=== PATIENT | female | born 1965 | race Caucasian/White ===

== ENCOUNTER 2017-07-13 17:19 | Observation (INO) | payer OTHER ==
[2017-07-13] MEDS ORDERED: traMADol HCl 50 MG TAB ONE (19:48)
--- NOTE | 2017-07-13 20:05 | RAD ---
CERVICAL SPINE: 07/13/17 Five views. HISTORY: Fall with injury to the neck. There are degenerative changes seen at C5-6 and C6-7 with disc narrowing and hypertrophic spurring. C7-T1 is not adequately evaluated on this exam. C7-T1 is not adequately seen on the Swimmer's view. The vertebral bodies maintain normal height and alignment through C7. A repeat Swimmer's view could be obtained with lower target to assess the C7-T1 level. IMPRESSION: Degenerative changes at C5-6 and C6-7. The vertebral bodies maintain height and alignment through C7. C7-T1 level not adequately evaluated. Recommend repeat Swimmer's view. POS: [facility]
--- NOTE | 2017-07-13 20:17 | CT ---
BRAIN CT WITHOUT IV CONTRAST: 07/13/17 HISTORY: 51-year-old female with history of fall. No focal mass or midline shift. No intra or extra-axial hemorrhage. Sinuses and mastoids are clear. IMPRESSION: No significant acute intracranial process. No mass or bleed. POS: [facility]
--- NOTE | 2017-07-13 21:09 | RAD ---
LEFT WRIST: 07/13/17 Three views. HISTORY: Fall with injury to wrist. Carpals appear normally aligned. No evidence of fracture identified. IMPRESSION: No evidence of fracture. POS: [facility]
--- NOTE | 2017-07-13 21:45 | CT ---
CT CERVICAL SPINE: 07/13/17 Multiple axial tomograms obtained through the cervical spine with multiplanar reconstructions. HISTORY: Fall with injury to neck. Cervical vertebrae maintain normal height and alignment. There are moderate degenerative changes in t he mid cervical with loss of disc space at C5-6, C6-7. There are degenerative osteophytes and posteri or spondylitic changes at these levels. No evidence of cervical spine fracture. Foraminal stenosis se en on the right at C3-4 due to facet hypertrophy. Foraminal stenosis seen bilaterally at C5-6 due to facet and uncinate hypertrophy and also at C6-7 due to facet and uncinate hypertrophy. IMPRESSION: There are moderate degenerative changes in the cervical spine. as described. There is no evidence of acute fracture. POS: [facility]
--- NOTE | 2017-07-13 22:55 | RAD ---
LEFT HIP TWO VIEWS: 07/13/17 HISTORY: 51-year-old female with history of left hip pain following a fall at home. IMPRESSION: Mild degenerative changes. No acute fracture or dislocation. POS: [facility]
[2017-07-13] MEDS ORDERED: Morphine 4 MG/ML VIAL ONE (22:57)
--- NOTE | 2017-07-13 23:01 | RAD ---
LEFT FOREARM: 07/13/17 A total of four views. HISTORY: Fall with injury to left forearm. FINDINGS/IMPRESSION: No evidence of fracture identified. POS: [facility]
--- NOTE | 2017-07-13 23:06 | RAD ---
LEFT ANKLE THREE VIEWS: 07/13/17 HISTORY: Left ankle pain. Minimal lateral soft tissue swelling. There is some irregularity of the distal tip of the fibula rais ing concern for a nondisplaced fracture of the tip of the fibula. IMPRESSION: Evidence for a nondisplaced fracture of the distal tip of the fibula with minimal associated soft tis ruslan swelling. POS: [facility]
[2017-07-14 01:03] LABS: #Basophils 0.1 thou/uL (0.0-0.2); #Eosinphils 0.1 thou/uL (0.0-0.7); #Lymphocytes 2.6 thou/uL (1.20-3.40); #Monocytes 0.8 thou/uL (0.11-0.59); #Neutrophils 7.3 thou/uL (1.40-6.50); %Basophils 0.9 % (0.0-1.0); %Eosinophils 1.1 % (0.0-10.0); %Lymphocytes 23.7 % (21.0-51.0); %Monocytes 7.6 % (0.0-10.0); %Neutrophils 66.7 % (42.0-75.0); Mean Corpuscular HGB CONC 33.6 g/dL (32.0-36.0); Mean Corpuscular Hemoglobin 31.6 pg (27.0-31.0); Mean Platelet Volume 5.7 fL (7.4-10.4); Platelet Count 493 thou/uL (130-400); Red Blood Cell (RBC) Count 3.81 mill/uL (4.20-5.40); White Blood Cell (WBC) Count 10.9 thou/uL (4.8-10.8)
[2017-07-14 01:12] LABS: PTT 32.6 SEC (22.9-36.1)
[2017-07-14 01:14] LABS: Prothrombin Time 12.8 SEC (12.0-14.7)
[2017-07-14 01:22] LABS: ALT (SGPT) 7 U/L (8-55); AST (SGOT) 11 U/L (5-34); Albumin 3.9 g/dL (3.5-5.0); Alkaline Phosphatase 89 U/L (40-150); Anion Gap 11 mmol/L (10-20); BUN (Urea Nitrogen) 11 mg/dL (9.8-20.1); Bilirubin, Total 0.3 mg/dL (0.2-1.2); Calc. Creatinine Clearance 0 mL/min (70-130); Calcium 8.9 mg/dL (7.8-10.44); Carbon Dioxide 23 mmol/L (22-29); Chloride 106 mmol/L (98-107); Estimated GFR-MDRD 78; Glucose 88 mg/dL (70-105); Potassium 4.1 mmol/L (3.5-5.1); Protein, Total 6.9 g/dL (6.0-8.3); Sodium 136 mmol/L (136-145)
[2017-07-14] MEDS ORDERED: Acetaminophen 325 MG TAB PO PRN (03:56)
[2017-07-14] MEDS ORDERED: Ondansetron HCl/PF 4 MG/2 ML Vial IVP PRN ×2 (03:56→11:55)
[2017-07-14] MEDS ORDERED: Ondansetron ODT 4 MG TAB SL PRN (03:56)
[2017-07-14] MEDS: Morphine 4 MG/ML VIAL SLOW IVP PRN ×2 (04:05→09:52)
[2017-07-14 04:16] VITALS: BMI 23.8
[2017-07-14] MEDS ORDERED: Acetaminophen/Codeine 30-300mg Tablet PO PRN (11:49)
[2017-07-14] MEDS ORDERED: Lorazepam 1 MG TAB PO SCH (12:00)
--- NOTE | 2017-07-14 12:06 | CON ---
This is Argenis Villegas, Physician Motor Equipment Lieutenant, dictating for Orthopedic Surgery. DATE OF CONSULTATION: 07/14/2017 REASON FOR CONSULTATION: Left ankle fracture. REQUESTING PHYSICIAN: Jose Zapata M.D. CONSULTING PHYSICIAN: Dane Santiago M.D. BRIEF HISTORY: This is a 51-year-old female who presented to the Emergency Department yesterday afte r a slip and fall while she was at the [facility]. The patient states that she stepped backwards and slipped into a draining trough at the [facility]. She reported left ankle and left wrist pain. She states she hit her head, but does not remember losing consciousness. She was unable to bear weight at that time. She is right hand dominant. In the Emergency Department, she was found to have a left distal fibula fracture. We have been consulted for this reason. X-rays of the left wrist were nega tive. She has been admitted to the medicine service for intractable pain, status post fall. PAST MEDICAL HISTORY: The patient reports history of depression. PAST SURGICAL HISTORY: Left shoulder surgeries x2, hysterectomy. SOCIAL HISTORY: The patient denies alcohol use. She states that she smokes approximately 1 pack per day of cigarettes. Denies any illicit drug use. Lives at home alone. Family nearby. FAMILY HISTORY: Reviewed and noncontributory. REVIEW OF SYSTEMS: A 10-point review of systems reviewed and otherwise negative except for noted abo ve. PHYSICAL EXAMINATION: VITAL SIGNS: Temperature 98.7, pulse of 78, respiratory rate of 14 and blood pressure of 96/61. GENERAL: The patient is awake and alert and oriented x3. She is in no acute distress. Son is at be dside. HEENT: Head is normocephalic and atraumatic. NECK: Supple. LUNGS: Breathing is nonlabored. EXTREMITIES: The left lower extremity was examined. There is a posterior short leg and stirrup spli nt applied. This was removed for further evaluation. Skin is intact. There is mild to moderate sof t tissue swelling along the lateral malleolus. Tenderness to palpation over the lateral malleolus. Mild tenderness along the anterior and medial side of the ankle. Dorsiflexion and plantar flexion li mited secondary to pain and injury. Distal neurovascular status is intact. Knee; nontender with ran ge of motion intact. The left upper extremity shows a Velcro wrist splint, which has been applied by the Emergency Department. This was removed as it does not appear to be fitting properly. Her wrist was examined briefly. She does have soft tissue swelling and generalized tenderness without any spe cific point tenderness. Flexion and dorsiflexion are limited secondary to pain. Distal neurovascula r status intact. The splint was reapplied correctly. RADIOGRAPHIC FINDINGS: Including x-rays of the left ankle, which were reviewed by me showed evidence of a nondisplaced fracture of the distal tip of the fibula. Otherwise, no acute findings. X-rays r eviewed of the left wrist, which were reviewed by me showed no acute findings. ASSESSMENT AND PLAN: Distal fibula avulsion fracture, nondisplaced. The patient was placed in a Nintex boot today. She may weightbear as tolerated. She will remove the boot for showering and sleepi ng as needed. She may follow up in the Orthopedic Clinic in 2-3 weeks once she is discharged. Plan of care discussed with Dr. Santiago. He is in agreeance. Plan of care also discussed with the jonn ent and her son today at the bedside. They verbalized understanding.
[2017-07-14] MEDS: Nicotine 14 MG PATCH TOP SCH (17:09)
[2017-07-14] MEDS ORDERED: traZODone HCl 50 MG TAB PO SCH (21:00)
[2017-07-14] MEDS: Naproxen 500 MG TAB PO SCH (21:56)
[2017-07-14] MEDS: Diazepam 5 MG TAB PO SCH (21:56)
--- NOTE | 2017-07-15 05:14 | HP ---
DATE OF ADMISSION: 07/13/2017 REASON FOR ADMISSION AND CHIEF COMPLAINT: History of fall and pain in left ankle, left wrist, and ne ck. HISTORY OF PRESENT ILLNESS: Ms. Bains is a 51-year-old female with past medical histor y of depression, anxiety, chronic left shoulder pain, came because she fell while at the [employer]. She stepped on the water and slipped and fell backwards on to her head and to the left side. She now complains of neck pain, left wrist pain, as well as left ankle pain. No loss of consciousness. No headache. No nausea or vomiting. No chest pain or shortness of breath. The patient came to the hospital with more pain in the left ankle than the left wrist. The patient was evaluated in the ER, found to have fibular fracture in the left, admitted for pain management because of her severe pain. PAST MEDICAL HISTORY: 1. Anxiety. 2. Depression. 3. Left shoulder pain. PAST SURGICAL HISTORY: Status post hysterectomy. CURRENT MEDICATIONS: The patient is on Seroquel 100 mg in the morning and 400 at bedtime, diazepam 1 0 mg b.i.d., Zoloft 100 mg daily, and trazodone 200 at bedtime. ALLERGIES: NKDA. FAMILY HISTORY: Nothing significant. SOCIAL HISTORY: Smokes half pack a day. No history of alcohol intake. No history of drug abuse. REVIEW OF SYSTEMS: Unremarkable except for this pain. PHYSICAL EXAMINATION: GENERAL: The patient is alert, awake, oriented x3. VITAL SIGNS: Temperature 98, pulse 72, respirations 20, blood pressure 100/90. HEENT: Head is normocephalic, atraumatic. Pupils are equal and reactive. Nasopharynx is pink and m oist. NECK: Supple. No JVD. LUNGS: Bilateral air entry present. No rales, no rhonchi. HEART: S1, S2 regular. ABDOMEN: Soft. No distention, no tenderness. Normal bowel sounds. RECTAL: Deferred. CENTRAL NERVOUS SYSTEM: No focal deficits. EXTREMITIES: Left wrist is tender with movement. Range of movements are limited. Left ankle is mar kedly swollen on the lateral aspect, is tender, and range of movements markedly limited. LABORATORY AND X-RAY FINDINGS: CBC shows WBC 10, hemoglobin 12, hematocrit 35, platelets 493. Proth rombin time 12, INR 1. Metabolic panel: Sodium 136, potassium 4, chloride 106, CO2 of 23, urea nitr ogen 11, creatinine 0.7, glucose 88. X-ray of the forearm and left wrist showed no evidence of fracture. X-ray of the ankle showed avulsi on fracture of fibula without any displacement. X-ray of the cervical spine was unremarkable except showed degenerative changes. CT of the brain, no significant intracranial process. CT of the cervic al spine is also negative, except DJD changes. ASSESSMENT: 1. Status post fall with intractable pain. 2. Fractured fibula, left, displaced. 3. Left wrist and neck contusion. 4. History of depression. 5. History of anxiety. 6. History of left shoulder pain. PLAN: 1. Vital signs q.4 hours. 2. Activity: As tolerated. 3. Allergies: NKDA. 4. Hep-Lock. 5. Continue home medications. 6. Orthopedic consult. 7. Regular diet. 8. Tylenol No. 3 for pain.
[2017-07-15 07:57] VITALS: BP 124/85; TEMP 97.7
[2017-07-15] MEDS: Nicotine 14 MG PATCH TOP SCH (07:57)
[2017-07-15] MEDS: Diazepam 5 MG TAB PO SCH (11:42)
[2017-07-15] MEDS: Naproxen 500 MG TAB PO SCH (11:42)
--- NOTE | 2017-07-17 13:24 | DIS ---
DATE OF ADMISSION: 07/14/2017 DATE OF DISCHARGE: 07/15/2017 ADMITTING DIAGNOSES: 1. Status post fall with intractable pain. 2. Fracture fibula, left, undisplaced. 3. Left wrist and neck contusion. 4. History of depression. 5. History of anxiety. 6. History of left shoulder pain. FINAL DIAGNOSES: 1. Status post fall with intractable pain, improved. 2. Fracture of the lower end of fibula, left side, undisplaced. 3. Left wrist and neck contusion, improved. BRIEF SUMMARY OF HOSPITAL COURSE: Ms. Bains is a 51-year-old female admitted because o f fall and injuries to the left wrist and neck and leg pain. The patient was found to have fracture of the fibula, left side, lower end, undisplaced. The patient was seen via orthopedic, suggested [facility] and the patient's pain was controlled with pain medication while in the hospital. In view of improvement, the patient is being discharged. At the time of discharge, she was stable. Her jl l signs were stable. Lungs clear. Heart sounds regular. Abdomen is soft, nontender. Bowel sounds present. DISCHARGE MEDICATIONS: Include Seroquel 400 mg at bedtime and Seroquel 100 mg in the morning and Zol oft 200 mg daily, diazepam 10 mg b.i.d., trazodone 200 mg at bedtime, and Tylenol p.r.n. FOLLOWUP: The patient will come for followup in 2 weeks.
== END 2017-07-15 11:53 | disposition home or self-care (01) ==
LOC: ERS 17:19 → SURG A 07-14 03:26
PROVIDERS: ADMIT Internal Medicine; ATTEND Internal Medicine
DX: S82.65XA Nondisplaced fracture of lateral malleolus of left fibula, initial encounter for closed fracture (principal); S10.93XA Contusion of unspecified part of neck, initial encounter; S60.212A Contusion of left wrist, initial encounter; S09.90XA Unspecified injury of head, initial encounter; F32.9 Major depressive disorder, single episode, unspecified; F41.9 Anxiety disorder, unspecified; F17.210 Nicotine dependence, cigarettes, uncomplicated; Z79.899 Other long term (current) drug therapy; W01.0XXA Fall on same level from slipping, tripping and stumbling without subsequent striking against object, initial encounter; Y92.59 Other trade areas as the place of occurrence of the external cause
CPT/HCPCS: 27786; 36415; 70450; 72040; 72125; 80053; 85025; 85610; 85730; 96372; 96374; 96376; 99406; G0378; G8978-GP-CK; G8979-GP-CI; G8987-GO-CK; G8988-GO-CI; J2270

== ENCOUNTER 2017-09-13 15:08 | Outpatient (CLI) | payer MEDICAID, OTHER | END 2017-09-13 15:09 | disposition home or self-care (01) | LOC: BICRAD 15:08 | PROVIDERS: ATTEND Internal Medicine | DX: S82.402A Unspecified fracture of shaft of left fibula, initial encounter for closed fracture (principal); M25.532 Pain in left wrist ==

== ENCOUNTER 2018-01-02 15:05 | Outpatient (CLI) | payer MEDICAID | END 2018-01-02 15:06 | disposition home or self-care (01) | LOC: BICRAD 15:05 | PROVIDERS: ATTEND Internal Medicine | DX: M25.572 Pain in left ankle and joints of left foot (principal); M25.561 Pain in right knee; M25.562 Pain in left knee ==

== ENCOUNTER 2018-02-15 11:11 | Outpatient (CLI) | payer MEDICARE, MEDICAID | END 2018-02-15 11:12 | disposition home or self-care (01) | LOC: BICMAMMO 11:11 | PROVIDERS: ATTEND Physician Assistant | DX: Z12.31 Encounter for screening mammogram for malignant neoplasm of breast (principal) | CPT/HCPCS: 77063; 77067 ==

== ENCOUNTER 2019-02-05 12:57 | Outpatient (CLI) | payer MEDICARE, MEDICAID ==
--- NOTE | 2019-02-05 13:24 | RAD ---
XR Chest Pa Lat STANDARD History: Reactive airway disease without complication Comparison: None. Findings: Lungs are clear. No pneumothorax or effusion. Cardiac silhouette and mediastinal contours a re within normal limits. No acute osseous abnormality. Narrowing of the right subacromial space. Impression: No acute intrathoracic abnormality.
== END 2019-02-05 12:58 | disposition home or self-care (01) ==
LOC: BICRAD 12:57
PROVIDERS: ATTEND Internal Medicine
DX: J45.909 Unspecified asthma, uncomplicated (principal)
CPT/HCPCS: 71046

== ENCOUNTER 2019-03-20 09:39 | Outpatient (CLI) | payer MEDICARE, MEDICAID ==
--- NOTE | 2019-03-20 10:08 | RAD ---
Exam:2 views right hip HISTORY: Osteoarthritis COMPARISON: None FINDINGS: Preserved joint space. No fracture or malalignment. IMPRESSION: No significant degenerative change.
--- NOTE | 2019-03-20 10:08 | RAD ---
Exam:2 views left hip HISTORY: Osteoarthritis COMPARISON: None FINDINGS: Preserved joint space. No fracture or malalignment. IMPRESSION: No significant degenerative change.
--- NOTE | 2019-03-20 10:09 | RAD ---
Lumbar spine 2 views: 03/20/2019 COMPARISON: None HISTORY: Lumbar spondylosis, bilateral hip radiculopathy FINDINGS: There is disc space narrowing with degenerative endplate change at the L5-S1 level with ass ociated anterior osteophyte formation. Bilateral L5-S1 facet hypertrophy present. No anterolisthesis or retrolisthesis noted. At L1-2 there is disc space narrowing with anterior osteophyte formation. No acute osseous abnormalit y. IMPRESSION: Degenerative change within the lumbar spine as detailed above. No acute osseous abnormali ty. If there are persistent radicular symptoms, MRI suggested.
== END 2019-03-20 09:40 | disposition home or self-care (01) ==
LOC: BICRAD 09:39
PROVIDERS: ATTEND Internal Medicine
DX: M47.816 Spondylosis without myelopathy or radiculopathy, lumbar region (principal); M16.0 Bilateral primary osteoarthritis of hip
CPT/HCPCS: 72100

== ENCOUNTER 2019-05-09 09:36 | Emergency (ER) | payer MEDICARE, MEDICAID ==
--- NOTE | 2019-05-09 10:08 | RAD ---
TWO VIEW CHEST: HISTORY: Cough. COMPARISON: 02/05/2019. FINDINGS: The lungs are clear. No infiltrate. Heart and mediastinum unremarkable. Osseous structures unremar kable. IMPRESSION: No acute finding. POS: [facility]
[2019-05-09] MEDS ORDERED: cefTRIAXone\\ROCEPHIN 1 GM VIAL ONE (12:01)
[2019-05-09] MEDS ORDERED: Dexamethasone 10 MG/ML VIAL ONE (12:01)
[2019-05-09] MEDS ORDERED: Lidocaine 1% PF 5 ML VIAL ONE (12:02)
== END 2019-05-09 12:17 | disposition home or self-care (01) ==
LOC: ERS 09:36
DX: J11.00 Influenza due to unidentified influenza virus with unspecified type of pneumonia (principal); R11.10 Vomiting, unspecified; F41.9 Anxiety disorder, unspecified; F32.9 Major depressive disorder, single episode, unspecified; F17.210 Nicotine dependence, cigarettes, uncomplicated; Z79.899 Other long term (current) drug therapy
CPT/HCPCS: 71046; 87804; 96372; J0696; J1100; J2001

== ENCOUNTER 2019-05-16 15:43 | Emergency (ER) | payer MEDICARE, MEDICAID ==
[~2019-05-16 15:43] MED LIST: Iopamidol-370 76% 500 ML 1 ML ONE
--- NOTE | 2019-05-16 16:48 | RAD ---
EXAM: Chest PA and lateral: HISTORY: Pneumonia. Nausea. Vomiting. COMPARISON: 05/09/2019 FINDINGS: Heart: Normal cardiac silhouette Aorta: Unremarkable Pulmonary vessels: Normal Costophrenic angles: Costophrenic angles are clear. Lungs: No consolidation or masses. Pneumothorax: No pneumothorax Osseous structures: No osseous abnormalities IMPRESSION: No acute cardiopulmonary process.
[2019-05-16] MEDS ORDERED: Magnesium 2 GM/50 ML BAG (IN WATER) ONE (17:21)
[2019-05-16] MEDS ORDERED: Dexamethasone 10 MG/ML VIAL ONE (17:22)
[2019-05-16 17:27] LABS: #Basophils 0.1 thou/uL (0.0-0.2); #Eosinphils 0.2 thou/uL (0.0-0.7); #Monocytes 1.3 thou/uL (0.11-0.59); #Neutrophils 11.9 thou/uL (1.40-6.50); %Basophils 0.7 % (0.0-1.0); %Eosinophils 1.1 % (0.0-10.0); %Lymphocytes 18.3 % (21.0-51.0); %Monocytes 8.1 % (0.0-10.0); %Neutrophils 71.9 % (42.0-75.0); Hemoglobin 12.2 g/dL (12.0-16.0); Mean Corpuscular HGB CONC 30.3 g/dL (32.0-36.0); Mean Corpuscular Hemoglobin 29.1 pg (27.0-31.0); Mean Corpuscular Volume 96.1 fL (78.0-98.0); Mean Platelet Volume 5.8 fL (7.4-10.4); Platelet Count 634 thou/uL (130-400); RBC Distribution Width 13.8 % (11.5-14.5); White Blood Cell (WBC) Count 16.6 thou/uL (4.8-10.8)
[2019-05-16 17:54] LABS: ALT (SGPT) 8 U/L (8-55); AST (SGOT) 10 U/L (5-34); Albumin 3.8 g/dL (3.5-5.0); Alkaline Phosphatase 107 U/L (40-110); Anion Gap 11 mmol/L (10-20); BUN (Urea Nitrogen) 10 mg/dL (9.8-20.1); Bilirubin, Total 0.4 mg/dL (0.2-1.2); CK (CPK) 21 U/L (29-168); Calc. Creatinine Clearance 0 mL/min (70-130); Calcium 8.7 mg/dL (7.8-10.44); Carbon Dioxide 27 mmol/L (22-29); Chloride 106 mmol/L (98-107); Estimated GFR-MDRD 90; Globulin 3.2 g/dL (2.4-3.5); Glucose 97 mg/dL (70-105); Lipase 33 U/L (8-78); Potassium 3.5 mmol/L (3.5-5.1); Sodium 140 mmol/L (136-145)
--- NOTE | 2019-05-16 19:39 | CT ---
CT ANGIOGRAM OF THE CHEST: 05/16/19 HISTORY: Left shoulder surgery. Persistent cough, nausea, vomiting and chills. Pneumonia. Evaluate for pulmona ry embolism. COMPARISON: None. TECHNIQUE: CT angiogram of the chest is performed in the axial plane. Three dimensional reformatted images are s ubmitted for interpretation. FINDINGS: Lower neck and axilla do not demonstrate any lymphadenopathy. No mediastinal mass, lymphadenopathy or hematoma. There is periaortic fluid. The thoracic aorta and abdominal aorta do not demonstrate any e vidence of dissection. There is atherosclerosis in the proximal descending thoracic aorta. The visual ized upper abdominal aorta is unremarkable. The visualized upper abdominal solid organs are also grossly unremarkable. Note is made of a small hiatal hernia. Trachea and central bronchi are patent. Scattered mild emphysematous changes of the lung parenchyma. No suspicious masses or consolidation. Right lung: No suspicious nodules or masses. Left lung: No suspicious masses or nodules. No pleural effusion. No pneumothorax. Adequate contrast opacification of the pulmonary arterial system to the level of the lobar arteries. Evaluation of the segmental and subsegmental arteries is limited due to poor timing of contrast bolus . No obvious central pulmonary artery embolism is appreciated. There are no lytic or blastic lesions in the osseous structures. IMPRESSION: 1. Limited evaluation of the pulmonary arterial system due to poor timing of contrast bolus. No obvious filling defect to the level of the proximal lobar arteries. 2. Nonspecific small amount of periaortic fluid. POS: [facility]
== END 2019-05-16 20:15 | disposition home or self-care (01) ==
LOC: ERS 15:43
DX: J44.1 Chronic obstructive pulmonary disease with (acute) exacerbation (principal); F41.9 Anxiety disorder, unspecified; F32.9 Major depressive disorder, single episode, unspecified; F17.210 Nicotine dependence, cigarettes, uncomplicated; Z79.899 Other long term (current) drug therapy; Z79.51 Long term (current) use of inhaled steroids
CPT/HCPCS: 36415; 71046; 71275; 80053; 82550; 83690; 83880; 84484; 85025; 85379; 93005; 96365; 96375; J1100; J3475; J7620; Q9967

== ENCOUNTER 2020-04-21 13:38 | Outpatient (CLI) | payer MEDICARE, MEDICAID ==
--- NOTE | 2020-04-21 14:24 | MMO ---
Bilateral MAMMO Bilat Screen [facility]. CLINICAL HISTORY: Patient is 54 years old and is seen for screening. The patient has the following family history of breast cancer: cousin female. The patient has no personal history of cancer. VIEWS: The views performed were: bilateral craniocaudal with tomosynthesis and bilateral mediolateral oblique with tomosynthesis. FILMS COMPARED: The present examination has been compared to a prior imaging study performed at [facility] on 02/15/2018. This study has been interpreted with the assistance of computer-aided detection. MAMMOGRAM FINDINGS: There are scattered fibroglandular densities. There are no suspicious masses, suspicious calcifications, or new areas of architectural distortion. IMPRESSION: THERE IS NO MAMMOGRAPHIC EVIDENCE OF MALIGNANCY. A ROUTINE FOLLOW-UP MAMMOGRAM IN 1 YEAR IS RECOMMENDED. THE RESULTS OF THIS EXAM WERE SENT TO THE PATIENT. ACR BI-RADS Category 1 - Negative MAMMOGRAPHY NOTE: 1. A negative mammogram report should not delay a biopsy if a dominant of clinically suspicious mass is present. 2. Approximately 10% to 15% of breast cancers are not detected by mammography. 3. Adenosis and dense breasts may obscure an underlying neoplasm. Reported by: VANIA RUCKER MD Electonically Signed: [id number]
== END 2020-04-21 13:39 | disposition home or self-care (01) ==
LOC: BICMAMMO 13:38
PROVIDERS: ATTEND Internal Medicine
DX: Z12.31 Encounter for screening mammogram for malignant neoplasm of breast (principal); Z80.3 Family history of malignant neoplasm of breast
CPT/HCPCS: 77063; 77067

== ENCOUNTER 2020-08-05 08:41 | Outpatient (CLI) | payer MEDICARE, MEDICAID ==
[2020-08-05] MEDS ORDERED: Iopamidol-370 76% 500 ML 1 ML ONE (11:36)
== END 2020-08-05 08:42 | disposition home or self-care (01) ==
LOC: BICCT 08:41
PROVIDERS: ATTEND Nurse Practitioner Family
DX: T81.49XA Infection following a procedure, other surgical site, initial encounter (principal); L02.211 Cutaneous abscess of abdominal wall
CPT/HCPCS: 74160; Q9967

== ENCOUNTER 2020-09-04 21:09 | Emergency (ER) | payer OTHER, MEDICARE, MEDICAID ==
[2020-09-04] MEDS ORDERED: Ibuprofen 800 MG TAB ONE (22:35)
== END 2020-09-04 23:08 | disposition home or self-care (01) ==
LOC: ERS 21:09
DX: S82.002A Unspecified fracture of left patella, initial encounter for closed fracture (principal); Z79.899 Other long term (current) drug therapy; Z79.51 Long term (current) use of inhaled steroids; W01.0XXA Fall on same level from slipping, tripping and stumbling without subsequent striking against object, initial encounter

== ENCOUNTER 2020-09-29 10:44 | Emergency (ER) | payer MEDICARE, MEDICAID ==
[2020-09-29 11:44] LABS: #Basophils 0.1 thou/uL (0.0-0.2); #Eosinphils 0.1 thou/uL (0.0-0.7); #Lymphocytes 3.2 thou/uL (1.20-3.40); #Monocytes 0.8 thou/uL (0.11-0.59); #Neutrophils 6.9 thou/uL (1.40-6.50); %Basophils 1.2 % (0.0-1.0); %Lymphocytes 28.6 % (21.0-51.0); %Monocytes 7.2 % (0.0-10.0); %Neutrophils 62.1 % (42.0-75.0); Hemoglobin 13.9 g/dL (12.0-16.0); Mean Corpuscular Hemoglobin 30.8 pg (27.0-31.0); Mean Corpuscular Volume 96.1 fL (78.0-98.0); Mean Platelet Volume 6.6 fL (7.4-10.4); Platelet Count 569 thou/uL (130-400); RBC Distribution Width 13.8 % (11.5-14.5)
[2020-09-29 12:07] LABS: ALT (SGPT) 9 U/L (8-55); AST (SGOT) 19 U/L (5-34); Albumin 4.2 g/dL (3.5-5.0); Alkaline Phosphatase 95 U/L (40-110); Anion Gap 14 mmol/L (10-20); BUN (Urea Nitrogen) 5 mg/dL (9.8-20.1); Bilirubin, Total 0.6 mg/dL (0.2-1.2); Calc. Creatinine Clearance 0 mL/min (70-130); Calcium 9.6 mg/dL (7.8-10.44); Carbon Dioxide 25 mmol/L (22-29); Chloride 106 mmol/L (98-107); Globulin 3.4 g/dL (2.4-3.5); Glucose 91 mg/dL (70-105); Potassium 4.4 mmol/L (3.5-5.1); Protein, Total 7.6 g/dL (6.0-8.3); Sodium 141 mmol/L (136-145)
[2020-09-29 13:53] LABS: Bacteria/HPF None Seen HPF (None Seen); Bilirubin Negative (Negative); Blood, Urine 1+ (Negative); Clarity Clear (Clear); Glucose, Urine (Dipstick) Normal (Negative); Ketone, Urine 40 mg/dL (Negative); Leukocyte Negative Leu/uL (Negative); Nitrite Negative (Negative); Protein, Urine (Dipstick) Negative (Neg-Trace); Specific Gravity, Urine 1.018 (1.002-1.036); Squamous Epithelial 0-3 HPF (0-3); WBC/HPF 0-3 HPF (0-3); pH, Urine 5.5 (5.0-9.0)
== END 2020-09-29 17:55 | disposition home or self-care (01) ==
LOC: ERS 10:44
DX: R31.9 Hematuria, unspecified (principal); J45.909 Unspecified asthma, uncomplicated; F17.210 Nicotine dependence, cigarettes, uncomplicated
CPT/HCPCS: 36415; 71045; 80053; 81003; 81015; 84484; 85025

== ENCOUNTER 2021-08-06 10:13 | Outpatient (CLI) | payer MEDICARE | END 2021-08-06 10:14 | disposition home or self-care (01) | LOC: ULT 10:13 | PROVIDERS: ATTEND Physician Assistant Medical | DX: R10.13 Epigastric pain (principal); K21.9 Gastro-esophageal reflux disease without esophagitis; R11.2 Nausea with vomiting, unspecified; K59.00 Constipation, unspecified | CPT/HCPCS: 76700 ==

== ENCOUNTER → 2021-11-02 | Day surgery (SDC) | payer OTHER, MEDICAID | END | disposition home or self-care (01) | LOC: ENDO/OP 11:47 | PROVIDERS: ATTEND Physician Assistant Medical | DX: R13.19 Other dysphagia (principal); K44.9 Diaphragmatic hernia without obstruction or gangrene | CPT/HCPCS: 91010 ==

== ENCOUNTER → 2022-04-19 | Day surgery (SDC) | payer OTHER, MEDICAID ==
[~2022-04-19] MED LIST changes: -Iopamidol-370 76% 500 ML 1 ML ONE; +Lidocaine Jelly 2% Urojet 10 ML ONE
== END | disposition home or self-care (01) ==
LOC: SDC 07:27
PROVIDERS: ATTEND Internal Medicine
DX: K21.9 Gastro-esophageal reflux disease without esophagitis (principal); R13.19 Other dysphagia
CPT/HCPCS: 91010; J2001

== ENCOUNTER 2022-04-28 12:23 | Outpatient (CLI) | payer OTHER ==
[2022-04-28] MEDS ORDERED: Iopamidol 370 76% 100 ML VIAL ONE (15:10)
== END 2022-04-28 12:24 | disposition home or self-care (01) ==
LOC: CT 12:23
PROVIDERS: ATTEND Internal Medicine Medical Oncology
DX: D75.839 Thrombocytosis, unspecified (principal); R31.9 Hematuria, unspecified; E07.9 Disorder of thyroid, unspecified; K44.9 Diaphragmatic hernia without obstruction or gangrene; K76.9 Liver disease, unspecified; K59.00 Constipation, unspecified; Z90.710 Acquired absence of both cervix and uterus; Z87.891 Personal history of nicotine dependence
CPT/HCPCS: 71260; 74177; Q9967

== ENCOUNTER 2022-06-16 12:35 | Outpatient (CLI) | payer OTHER ==
[2022-06-16 13:14] LABS: #Basophils 0.1 10x3/uL (0.0-0.2); #Eosinphils 0.2 10x3/uL (0.0-0.5); #Monocytes 0.9 10x3/uL (0.0-1.1); #Neutrophils 8.4 10x3/uL (1.5-8.4); %Basophils 0.8 % (0.0-2.0); %Eosinophils 1.3 % (0.0-6.0); %Lymphocytes 23.3 % (18.0-47.0); %Monocytes 6.8 % (0.0-10.0); %Neutrophils 67.5 % (40.0-75.0); Hemoglobin 13.9 g/dL (12.0-15.5); Mean Corpuscular HGB CONC 32.3 g/dL (32.0-36.0); Mean Corpuscular Hemoglobin 30.2 pg (27.0-33.0); Mean Corpuscular Volume 93.7 fl (81.6-98.3); Mean Platelet Volume 8.8 fl (7.4-10.4); Platelet Count 654 10x3/uL (150-450); RBC Distribution Width 15.9 % (11.5-14.5); White Blood Cell (WBC) Count 12.4 10x3/uL (3.5-10.5)
[2022-06-16 13:34] LABS: Anion Gap 16 mmol/L (10-20); BUN (Urea Nitrogen) 13 mg/dL (9.8-20.1); Calc. Creatinine Clearance 0 mL/min (70-130); Calcium 9.6 mg/dL (7.8-10.44); Carbon Dioxide 25 mmol/L (22-29); Chloride 105 mmol/L (98-107); Estimated GFR 88; Glucose 97 mg/dL (70-105); Potassium 4.9 mmol/L (3.5-5.1); Sodium 141 mmol/L (136-145)
== END 2022-06-16 12:36 | disposition home or self-care (01) ==
LOC: LABBT 12:35
PROVIDERS: ATTEND Surgery
DX: Z01.812 Encounter for preprocedural laboratory examination (principal); K44.9 Diaphragmatic hernia without obstruction or gangrene
CPT/HCPCS: 80048; 81001; 82728; 85025; 87077; 87086; 87186

== ENCOUNTER 2022-06-17 13:26 | Outpatient (CLI) | payer OTHER | END 2022-06-17 13:27 | disposition home or self-care (01) | LOC: BICMAMMO 13:26 | PROVIDERS: ATTEND Internal Medicine Medical Oncology | DX: Z12.31 Encounter for screening mammogram for malignant neoplasm of breast (principal); Z91.89 Other specified personal risk factors, not elsewhere classified; Z80.3 Family history of malignant neoplasm of breast | CPT/HCPCS: 77063; 77067 ==

== ENCOUNTER 2022-06-21 05:34 | Day surgery (SDC) | payer OTHER ==
[2022-06-20 11:07] VITALS: BMI 26.6
[2022-06-21] MEDS ORDERED: Bupivacaine/Epinephrine 0.25% 30 ML VIAL ONE (06:34)
[2022-06-21] MEDS ORDERED: fentaNYL PF 100 MCG/2 ML SYRINGE ONE (06:59)
[2022-06-21] MEDS ORDERED: Dexmedetomidine 200 MCG/2 ML VIAL ONE (07:00)
[2022-06-21] MEDS ORDERED: SUGAMMADEX SODIUM 200 MG/2 ML VIAL ONE (07:00)
[2022-06-21] MEDS ORDERED: Sodium Chloride 0.9% 100 ML ONE (08:04)
[2022-06-21] MEDS ORDERED: CEFAZOLIN 2 GM VIAL ONE (08:04)
[2022-06-21] MEDS ORDERED: Labetalol HCl 100 MG/20 ML VIAL ONE (08:12)
[2022-06-21] MEDS ORDERED: NEOSTIGMINE 3 MG/3 ML SYR 3 MG/3 ML SYRINGE ONE (08:12)
[2022-06-21] MEDS ORDERED: Rocuronium Bromide 10 MG/ML (10ML VIAL) ONE (08:12)
[2022-06-21] MEDS ORDERED: Albuterol HFA (OR) 200 PUFF INH ONE (08:12)
[2022-06-21] MEDS ORDERED: Lidocaine 1% PF 5 ML VIAL ONE (08:12)
[2022-06-21] MEDS ORDERED: PROPOFOL 200 MG/20 ML VIAL ONE (08:12)
[2022-06-21] MEDS ORDERED: Ondansetron PF 4 MG/2 ML Vial ONE (08:12)
[2022-06-21] MEDS ORDERED: Dexamethasone 20 MG/5 ML VIAL ONE (08:12)
[2022-06-21] MEDS ORDERED: Glycopyrrolate 0.2 MG/ML 5 ML SYRINGE ONE (08:12)
[2022-06-21] MEDS ORDERED: Esmolol 100 MG/10 ML VIAL ONE (08:12)
[2022-06-21] MEDS ORDERED: FENTANYL 50 MCG/ML 1 ML VIAL ONE ×2 (09:55→10:52)
[2022-06-21] MEDS ORDERED: HYDROmorphone 0.5 MG/0.5 ML SYRINGE ONE (10:08)
[2022-06-21] MEDS ORDERED: HYDROmorphone 2 MG/ML VIAL ONE (10:16)
== END 2022-06-21 14:00 | disposition home or self-care (01) ==
LOC: SDC 05:34
PROVIDERS: ATTEND Surgery
PROC: 0BQT4ZZ Repair Diaphragm, Percutaneous Endoscopic Approach (ICD-10-PCS; principal; 2022-06-21)
PROC: 8E0W4CZ Robotic Assisted Procedure of Trunk Region, Percutaneous Endoscopic Approach (ICD-10-PCS; 2022-06-21)
DX: K44.9 Diaphragmatic hernia without obstruction or gangrene (principal); F17.210 Nicotine dependence, cigarettes, uncomplicated; Z79.899 Other long term (current) drug therapy
CPT/HCPCS: 43281; J3010; J1100; J1170; J2405; J2704; J3490